=== PATIENT | female | born 1995 | race Caucasian/White ===

== ENCOUNTER 2022-03-17 08:05 | Emergency (ER) | payer OTHER ==
[~2022-03-17] VITALS: Ht 160 cm; Wt 56.2 kg
[2022-03-17 08:11] VITALS: BP 131/87
--- NOTE | 2022-03-17 08:16 | NUR ---
PT AMBULATED TO BED 06.
--- NOTE | 2022-03-17 08:32 | NUR ---
LAB AT BEDSIDE
--- NOTE | 2022-03-17 08:35 | NUR ---
26YO FEMALE PT C/O INTERMITTENT 5/10 CHEST PAIN X2DAYS. EPISODES LASTING ABOUT 10-15 MIN W/ RADIATION FROM MID TO RIGHT OF CHEST. REPORTS SOB AND NAUSEA THIS MORNING. DENIES TAKING MEDICATION FOR PAIN, V/D, FEVER OR CHILLS. PT AAOX4, NO VISIBLE DISTRESS. RESPRATIONS EVEN AND UNLABORED. ON SUPERINTENDENT PLANT W/ HOB POSITIONED PER COMFORT. DAUGHTER AT BEDSIDE. HX: DENIES NKA
--- NOTE | 2022-03-17 08:38 | NUR ---
XRAY AT BEDSIDE
[2022-03-17 08:43] LABS: BASOPHILS % (AUTO) 0.2 % (0.0-2.0); EOSINOPHILS # (AUTO) 0.1 K/uL (0-0.4); EOSINOPHILS % (AUTO) 1.9 % (0.0-4.0); HEMATOCRIT 43.3 % (36-48); HEMOGLOBIN 14.8 g/dL (12.0-16.0); LYMPHOCYTES # (AUTO) 2.1 K/uL (2.5-16.5); LYMPHOCYTES % (AUTO) 35.3 % (20.5-51.1); MEAN CORPUSCULAR HEMOGLOBIN 30 pg (27-31); MEAN CORPUSCULAR HGB CONC 34 g/dL (33-37); MEAN CORPUSCULAR VOLUME 88.8 fL (80-94); MONOCYTES # (AUTO) 0.6 K/uL (0.8-1.0); MONOCYTES % (AUTO) 9.6 % (1.7-9.3); NEUTROPHILS # (AUTO) 3.2 K/uL (1.8-7.7); PLATELET COUNT (AUTO) 231 K/uL (140-450); RED BLOOD CELL COUNT(AUTO) 4.87 MIL/uL (4.20-5.40); RED CELL DISTRIBUTION WIDTH 12.3 % (11.6-13.7)
[2022-03-17 09:16] LABS: ALBUMIN 3.9 g/dL (3.4-5.0); ANION GAP 10.1 (8-16); ASPARTATE AMINOTRANSFERASE 19 U/L (15-37); CARBON DIOXIDE 26.3 mmol/L (21-32); CHLORIDE 106 mmol/L (98-107); CREATININE 0.8 mg/dL (0.6-1.3); GFR ARICAN-AMERICAN 112 mL/min (>90); GLUCOSE 85 mg/dL (74-106); POTASSIUM 3.4 mmol/L (3.5-5.1); SODIUM SERUM 139 mmol/L (136-145); TOTAL BILIRUBIN 0.6 mg/dL (0.0-1.0); UREA NITROGEN, BLOOD 9 mg/dL (7-18)
--- NOTE | 2022-03-17 10:19 | NUR ---
MD CAM AT BEDSIDE
[2022-03-17] MEDS ORDERED: IBUP-2213 PO (10:29)
[2022-03-17] MEDS ORDERED: METH-1681 PO (10:29)
[2022-03-17] MEDS ORDERED: MECL-303 PO (10:29)
[2022-03-17 10:44] VITALS: BP 118/67
--- NOTE | 2022-03-17 10:44 | NUR ---
Patient discharged with v/s stable. Written and verbal after care instructions FOR VERIGO AND COSTOCHONDRITIS given and explained. Patient alert, oriented and verbalized understanding of instructions. Ambulatory with steady gait. All questions addressed prior to discharge. ID band removed. Patient advised to follow up with PMD. Rx of ANTIVERT, ROBAXIN AND IBUPROFEN given. Opportunity to ask questions provided and answered.
--- NOTE | 2022-03-17 11:02 | NUR ---
The patient's care was reviewed and supervised by Angélica Mejia RN.
== END 2022-03-17 10:44 | disposition home or self-care (01) ==
LOC: MED 08:05
DX: M94.0 Chondrocostal junction syndrome [Tietze] (principal); F12.90 Cannabis use, unspecified, uncomplicated; Z72.89 Other problems related to lifestyle
CPT/HCPCS: 36415; 71045; 80053; 84484; 84702; 85025; 93005; 99285